=== PATIENT | male | born 1960 | race Caucasian/White ===

== ENCOUNTER → 2020-10-22 | Outpatient (CLI) | payer BC, OTHER ==
[~2020-10-22] MED LIST: ROSUVASTATIN CA10 MG PO
[2020-10-22 11:12] LABS: URINE BILIRUBIN NEGATIVE (Negative); URINE BLOOD NEGATIVE (Negative); URINE CLARITY CLEAR; URINE COLOR YELLOW; URINE GLUCOSE-RANDOM* NEGATIVE (Negative); URINE KETONES NEGATIVE (Negative); URINE LEUKOCYTES-REFLEX NEGATIVE (Negative); URINE NITRITE-REFLEX NEGATIVE (Negative); URINE PROTEIN (DIPSTICK) NEGATIVE (Negative); URINE SPECIFIC GRAVITY >= 1.030 (1.005-1.035); URINE UROBILINOGEN 0.2 E.U./dl (0.2-1.0)
[2020-10-22 11:16] LABS: HEMATOCRIT 46.6 % (42.0-52.0); HEMOGLOBIN 15.9 gm/dL (14.0-18.0); MCH 32.2 pg (26.0-34.0); MCHC 34.1 g/dL (28.0-37.0); MCV 94.3 fL (80.0-100.0); RBC 4.94 mil/uL (4.50-6.00); RDW 13.7 % (10.5-14.5)
[2020-10-22 11:20] LABS: ALBUMIN 3.8 g/dL (3.4-5.0); CALCIUM 8.9 mg/dL (8.5-10.1); POTASSIUM 4.1 mmol/L (3.5-5.1)
[2020-10-22 11:21] LABS: INR 0.99; PROTIME 10.8 Seconds (9.3-11.4)
--- NOTE | 2020-10-22 13:07 | EKG ---
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 10/22/20 1307 D: 04/0 1030 Giovanni Merritt MD, FACC /EPI
== END ==
LOC: LAB 08:17
PROVIDERS: Student in an Organized Health Care Education/Training Program; ATTEND Orthopaedic Surgery
DX: Z01.810 Encounter for preprocedural cardiovascular examination (principal); Z20.822 Contact with and (suspected) exposure to COVID-19

== ENCOUNTER 2020-10-26 07:54 | Observation (INO) | payer BC, OTHER ==
[~2020-10-26] VITALS: Ht 188 cm; Wt 122.5 kg
--- NOTE | ~2020-10-26 | O ---
[facility] [place] [address] OPERATIVE REPORT Name: AUDREY WAGNER Room #: REG [facility].#: [id number] Admission: 10/26/20 Attend Phys: Isidro Valentino MD Discharge: Date of : 64 Report #: [id number] THIS REPORT FOR: cc: Loni Whitmore MD, Rebeca A. MD Abraham,Isidro Santoyo MD ~ DATE OF SERVICE: 10/26/2020 PREOPERATIVE DIAGNOSIS: Left knee osteoarthritis. POSTOPERATIVE DIAGNOSIS: Left knee osteoarthritis. PROCEDURE: Left total knee arthroplasty using Navio robotic assistance. SURGEON: Isidro Valentino MD. AVID EDITOR: Sunita Burgos PA-C. INDICATIONS FOR AVID EDITOR: Throughout the case, extensive retraction and manipulation of the knee was required. This was afforded to me by my assisted living assistant. ANESTHESIA: LMA with adductor canal block. IMPLANTS: [employer] size 8 Journey II BCS Oxinium femur, size 6 tibia, size 9 polyethylene and size 35 patella. TOURNIQUET TIME: 55 minutes. ESTIMATED BLOOD LOSS: 25 mL. COMPLICATIONS: None. SPECIMENS: None. CONDITION UPON LEAVING THE OPERATING ROOM: Stable. INDICATIONS FOR PROCEDURE: The patient is a 60-year-old gentleman with severe medial compartment, left knee osteoarthritis. He had failed conservative measures for this and after discussion with him, he elected for left unicompartmental knee arthroplasty versus total knee arthroplasty. DESCRIPTION OF PROCEDURE: Risks, benefits, alternatives, complications were discussed in detail with the patient including but not limited to risk of anesthesia, risk of damage to nerves, arteries, blood vessels, risk for infection, bleeding, risk for continued knee pain, need for reoperation. [facility] [address] [address] OPERATIVE REPORT Name: AUDREY WAGNER Room #: REG [facility] M..#: [id number] Admission: 10/26/20 Attend Phys: Isidro Valentino MD Discharge: Date of : 64 Report #: [id number] Informed consent was obtained from the patient. The left knee was appropriately marked in the preoperative holding area. IV Ancef was given for preoperative antibiotics. Left knee was appropriately marked in the preoperative holding area. Adductor canal block was placed by anesthesia. He was brought to the operating room and placed in supine position on operating room table. LMA anesthesia was induced without complication. Tourniquet was placed on the left thigh. Left lower extremity was prepped and draped in normal sterile fashion. Timeout was performed properly identifying the patient and procedure as well as the instrumentation and implants. All in the operating room were in agreement. Left lower extremity was exsanguinated, tourniquet was inflated. Tourniquet time was 55 minutes. Standard midline approach to knee was made with a #10 blade through the skin. Dissection was taken down sharply to the fascia and deep flaps were developed medially and laterally. Fresh 10 blade was used to make a medial parapatellar arthrotomy and the knee was inspected. There was severe medial compartment osteoarthritis. 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 It was decided to proceed with total knee arthroplasty. ACL and PCL were removed sharply. Reference pins were placed in the femur and the tibia. The knee was then digitally mapped using the [employer] robotic system. Intraoperative plan was made and we sized the size 8 femur, size 6 tibia and 10 spacer. After acceptance of the intraoperative plan, the distal femoral cut was made with Navio bur. Distal femoral cutting block was pinned in place and chamfer cuts were made. Attention was turned to the tibia. Remainder of the meniscus was removed with Bovie cautery. Tibial resection guide was pinned in place using the Navio for placement and tibial resection was made. After this, flexion and extension gaps were checked and found to have good balance in flexion and extension both medially and laterally. Tibia was sized, found to be a size 6. A size 6 tibial trial was placed, pinned and punched. A size 8 femoral trial was placed and the box cut was made. This was then trialed with a size 9 polyethylene and size 9 polyethylene demonstrated 1-2 mm of laxity medially with 1 mm laxity laterally throughout range of motion, 9 mm of bone was resected from the posterior surface of the patella and a size 35 patellar trial button was placed. Knee was taken through range of motion, found to be stable, found to have good patellar tracking. Trial components were removed. Bony ends were thoroughly irrigated with normal saline. Final size 6 tibia, size 8 Journey II BCS Oxinium femur and a size 35 patella were cemented in place using standard cementation techniques. While the cement cured, a periarticular injection consisting of morphine, ropivacaine, epinephrine, Toradol was placed around the knee joint capsule. After the cement cured, tourniquet was deflated. Hemostasis was obtained with Bovie cautery. Final size 9 polyethylene was placed. A gram of vancomycin was placed deep in the joint. Fascia was closed with 0 Vicryl, skin was closed with 2-0 Vicryl, 3-0 Monocryl. Dermabond and a AV dressing were applied. The patient tolerated [address] [address] OPERATIVE REPORT Name: AUDREY WAGNER Room #: REG [facility]#: [id number] Admission: 10/26/20 Attend Phys: Isidro Valentino MD Discharge: Date of : 64 Report #: [id number] this procedure well and went to recovery room under care of anesthesia postoperatively. By: 1250 1348 Isidro Valentino MD /nt
[2020-10-26 08:49] VITALS: BP 154/89
[2020-10-26 14:00] VITALS: BP 107/59
--- NOTE | 2020-10-26 14:32 | NUR ---
Pt transferred to unit from PACU. Pt a&ox4. Dressing c/d/i. Pain controlled with prn pain meds. IVF infusing. Admission completed. MARIAN rivera and SCDs in place. Polar care in place. Family at bedside. Physical therapy will evaluate patient. Call light within reach. Fall precautions in place. Will continue to monitor.
--- NOTE | 2020-10-26 15:50 | NUR ---
assessment: CM REVIEWED CHART AND MET WITH PATIENT AND HIS AT THE BEDSIDE. PT IS ALERT AND ORIENTED X4. PT IS S/P TKA. PT REPORTS LIVING IN A TOWNHOUSE WITH HIS . PT HAS ONE STEP TO ENTER AND NO STEPS HE HAS TO USE ONCE INSIDE. PT REPORTS HAVING OUTPATIENT PHYSICAL THERAPY ARRANGED BUT CANNOT RECALL THE NAME OF THE PLACE AT THIS TIME BUT BEGINS ON MONDAY. PHYSICAL THERAPY WORKED WITH PATIENT AND RECOMMENDING WALKER AT DISCHARGE. PT DOES NOT HAVE A WALKER AND HAS NO PREFERENCE OF [employer]. CM NOTIFIED [employer] WHO IS VERIFYING INSURANCE. CM WILL CONTINUE TO FOLLOW TO ASSIST NEDED.
[2020-10-26 16:44] VITALS: BP 117/74
[2020-10-26 19:06] VITALS: BP 130/69
[2020-10-27 03:26] VITALS: BP 124/72
--- NOTE | 2020-10-27 04:05 | NUR ---
I HAVE LOOKED OVER THE REASSESSMENT CHARTING BY AURE JOHNSON LPN ON THIS PATIENT AND I CONCUR.
[2020-10-27 05:16] LABS: HEMOGLOBIN 13.8 gm/dL (14.0-18.0); MCH 31.9 pg (26.0-34.0); MCHC 33.6 g/dL (28.0-37.0); MCV 95.1 fL (80.0-100.0); RBC 4.31 mil/uL (4.50-6.00); RDW 13.5 % (10.5-14.5); WBC 15.7 thou/uL (4.0-11.0)
--- NOTE | 2020-10-27 05:39 | NUR ---
PT HAD QUIET NOC NO C/O PAIN OR DISCMFORT THRU SHIFT. ABT INFUSED W/O DIFFICULTIES . IV PATENT POLAR PACK SCD AND MARIAN HOSE IN PLACE DRESSING CHANGED TO LEFT LOWER LEG SOILED WITH REDDISH BLOOD STRI STRIP NOTED IN PLACE. CURRENTLY C/D/I. WILL CONTINUE TO MONITOR.
[2020-10-27 07:25] VITALS: BP 116/74
--- NOTE | 2020-10-27 09:58 | NUR ---
Assumed care of pt at 0700. Pt a&ox4. Pain controlled with prn pain meds. Dressing c/d/i. Polar care in place. MARIAN hose and SCDs in place. Home walker will be delivered to pt's room this morning. Family at bedside. Call light within reach. Will continue to monitor.
[2020-10-27 10:26] VITALS: BP 116/74
[2020-10-27 12:46] VITALS: BP 116/74
--- NOTE | 2020-10-27 12:46 | NUR ---
ON-GOING ASSESSMENT: CM REVIEWED CHART. PT DID WELL WITH THERAPY AND HAS BEEN CLEARED TO DISCHARGE. [employer] DELIVERED A WALKER TO PATIENTS ROOM. PT HAS OUTPATIENT THERAPY ALREADY ARRANGED. PT REPORTS NO FURTHER NEEDS FROM CM.
== END 2020-10-27 12:49 | disposition home or self-care (01) ==
LOC: OR → 4S 14:04 → OR 14:05 → 4S 14:06 → OR 16:09 → 4S 10-27 12:49
PROVIDERS: ADMIT Orthopaedic Surgery; ATTEND Orthopaedic Surgery
DX: M17.12 Unilateral primary osteoarthritis, left knee (principal); Z79.899 Other long term (current) drug therapy
CPT/HCPCS: 27447; S2900; 50010; 50101; 50415; 50954; 51130; 51225; 51320; 52001; 52282; 53000; 53078; 53365; 54118; 56527; 56528; 57095; 57103; 57110; 57127; 57180; 64042; 70005

== ENCOUNTER → 2020-12-16 | Day surgery (SDC) | payer BC, OTHER ==
[~2020-12-16] VITALS: Ht 188 cm; Wt 116.1 kg
[2020-12-16 11:25] VITALS: BP 140/86
[2020-12-16 13:08] VITALS: BP 140/86
--- NOTE | 2020-12-24 11:33 | O ---
[facility] [place] [address] OPERATIVE REPORT Name: AUDREY UGARTE Room #: REG [facility]..#: [id number] Admission: 12/16/20 Attend Phys: Isidro Valentino MD Discharge: Date of : 64 Report #: [id number] THIS REPORT FOR: cc: FAM - Family physician unknown FAM - Family physician unknown Isidro Valentino MD ~ DOC #: [id number] Isidro Valentino MD DATE OF SERVICE: 12/16/2020 PREOPERATIVE DIAGNOSIS: Left knee arthrofibrosis, status post total knee arthroplasty. POSTOPERATIVE DIAGNOSIS: Left knee arthrofibrosis, status post total knee arthroplasty. PROCEDURE: Left knee manipulation under anesthesia. SURGEON: Isidro Valentino MD. ANESTHESIA: LMA. COMPLICATIONS: None. SPECIMENS: None. CONDITION UPON LEAVING OR : Stable. INDICATIONS FOR PROCEDURE: The patient is a 60-year-old gentleman who is about 6 weeks out from a left total knee arthroplasty. He has plateaued with physical therapy and has not gotten past 85-90 degrees of flexion. After discussion with him, he elected for manipulation under anesthesia. DESCRIPTION OF PROCEDURE: Risks, benefits, alternatives, complications were discussed in detail with the patient including, but not limited to risk of anesthesia, risk of intraoperative fracture, need for more invasive procedures. Informed consent was obtained from the patient. Left knee was appropriately marked in the preoperative holding area. He was brought to the operating room and placed in supine position on the operating table. LMA anesthesia was induced without complication. Timeout was performed properly identifying the patient and procedure as well as instrumentation. All in the operating room in agreement. The knee was then passively examined and found to have 3-85 degrees of flexion of the knee. The knee was then gently manipulated with palpable and audible breakage of scar tissue. Final range of motion was from 3-125 degrees. Intraoperative fluoroscopy was brought in to verify that no fracture occurred, as was the case. He was awoken from anesthesia and went to the recovery room [address] [address] OPERATIVE REPORT Name: AUDREY UGARTE Room #: REG [facility]..#: [id number] Admission: 12/16/20 Attend Phys: Isidro Valentino MD Discharge: Date of : 64 Report #: [id number] under the care of Anesthesia postoperatively. MD KAJAL Jeff/JASWINDER <ELECTRONICALLY SIGNED> By: Isidro Valentino MD 12/24/20 1133 1351 1634 Isidro Valentino MD /nt
== END | disposition home or self-care (01) ==
LOC: OR 09:13
PROVIDERS: ATTEND Orthopaedic Surgery
DX: M24.662 Ankylosis, left knee (principal); M17.12 Unilateral primary osteoarthritis, left knee; E78.5 Hyperlipidemia, unspecified; Z98.890 Other specified postprocedural states; Z96.652 Presence of left artificial knee joint; Z79.899 Other long term (current) drug therapy
CPT/HCPCS: 50010; 50101; 62110; 62900; 70005